=== PATIENT | female | born 1980 | race African-American/Black ===

== ENCOUNTER 2019-09-28 08:10 | Inpatient (IN) | payer OTHER ==
[2019-09-28 09:36] VITALS: BMI 36.1
[2019-09-28] MEDS ORDERED: OXYTOCIN 20 UNITS in 0.9% NS 40 UNIT/2,000 ML INFUS.BAG IV ONE (10:10)
[2019-09-28] MEDS ORDERED: ELECTROLYTE-148 SOLN 1,000 ML IV SCH (10:15)
[2019-09-28] MEDS ORDERED: DEXTROSE 5%-LACTATED RINGERS 1,000 ML IV SCH (10:15)
[2019-09-28] MEDS ORDERED: CITRIC ACID/SODIUM CITRATE 30 ML UNIT-DOSE CUP PO ONE (10:17)
--- NOTE | 2019-09-28 10:22 | HP ---
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: Alzheimer's, CVA, Dementia, Migraine, Multiple Sclerosis, Peripheral Neuropathy, Parkinson's, Seizure, Syncope, TIA, Vertigo, Other Cardiovascular: No: AFIB, Aneurysm, Aortic Insufficiency, Aortic Stenosis, CAD, CHF, Deep Vein Thrombosis, HTN, Hyperlipdemia, PR, Mitral Insufficiency, Mitral Stenosis, Murmur, Pulmonary Hypertension, Other Pulmonary: No: Asthma, Bronchitis, Cancer, COPD, O2 Dependent, Pneumonia, Previously Intubated, Pulmonary Embolus, Pulmonary Fibrosis, Sleep Apnea, Other Gastrointestinal: No: Ascites, Cancer, Constipation, Crohn's Disease, Diverticulitis, Diverticulosis, Esophageal Varices, Gastritis, GERD, GI Bleed, Hemorrhoids, Hiatal Hernia, Inflamatory Bowel Disease, Irritable Bowel Disease, Pancreatitis, Peptic Ulcer Disease, Ulcerative Colitis, Other Hepatobiliary: No: Cirrhosis, Cholelithiasis, Cholecystitis, Choledocholithiasis , Hepatitis A, Hepatitis B, Hepatitis C, Other Renal/: No: Renal Failure, Renal Inusuff, BPH, Cancer, Hematuria, Hemodialysis , Neurogenic Bladder, Renal Calculi, UTI, Other Reproductive: No: Ectopic , Endometriosis, Fibroids, PID, Polycystic Ovary Syndrome, Postmenopausal, Other ...: 3 ...Para: 2 ...Term: 2 ...: 0 ...Spon : 0 ...Induced : 0 ...Multiple Gestation: 0 ...LMP: 12/31/18 ... Weeks Gestation by Dates: 39 ...EDC by Dates: 10/06/19 ...EDC by Sono: 10/05/18 Heme/Onc: No: Anemia, B12 Deficiency, Bleeding Disorder, Cancer, Current Chemotherapy, Current Radiation Therapy, Hemochromatosis, Hypercoaguable State, Myeloproliferative Synd, Sickle Cell Disease, Sickle Cell Trait, Thrombocytopenia, Other Infectious Disease: No: AIDS, C-Diff, Herpes Zoster, HIV, MRSA, STD's, Tuberculosis, VREF, Other Psych: No: Addictions, Anxiety, Bipolar, Depression, Panic, Psychosis, Schizophrenia, Other Musculoskeletal: No: Bursitis, Chronic low back pain, Hemiparesis, Hemiplegia, Osteoarthritis, Paraplegia, Other Rheumatology: No: Fibromyalgia, Gout, Lupus, Rheumatoid Arthritis, Sarcoidosis, Vasculitis, Other ENT: No: Allergic Rhinitis, Sinusitis, Other Endocrine: No: Chet's Disease, Geneva's Disease, Diabetes Insipidus, Diabetes Mellitus, Hyperparathyroidism, Hyperthyroidism, Hypothyroidism, Osteopenia, SIADH, Other Dermatology: No: Basal Cell, Cellulitis, Eczema, Melanoma, Psoriasis, Squamous Cell, Other - Past Surgical History Past Surgical History: No: None, AAA Repair, AICD, Amputation, Appendectomy, Arthrosocopy, AV Fistula/Graft, Bariatric Surgery, Breast Biopsy, Bypass, CABG, Carotid Endarterectomy, Cataract Removal, Cholecystectomy, Colectomy, Colonoscopy, Colostomy, Craniotomy, , Cystectomy, Hernia Repair, Hysterectomy, Ileal Conduit, Ileosotomy, Joint Replacement, Kidney Transplant, Laminectomy, Liver Transplant, Mastectomy, Nephrectomy, Oopherectomy, Orchiectomy, Permanent Pacemaker, Prostatectomy, Splenectomy, Stent, Thoracotomy , TURP, Tonsillectomy, Tubal Ligation, Upper Endoscopy, Valve Replacement, Vasectomy, Vein Stripping/Ligation Hx Myomectomy: No Hx Transabdominal Cerclage: No - Advance Directives Advance Directives: Yes: Living Will - Smoking History Smoking history: Never smoked Have you smoked in the past 12 months: No - Alcohol/Substance Use Hx Alcohol Use: No History of Substance Use: reports: None - Social History Usual Living Arrangement: Yes: With Spouse Do you think of yourself as: Straight/Heterosexual ADL: Independent History of Recent Travel: No Home Medications - Allergies Allergies/Adverse Reactions: Allergies Allergy/AdvReac Type Severity Reaction Status Date / Time No Known Allergies Allergy Verified 09/28/19 09:16 - Home Medications Home Medications: Ambulatory Orders Prenat 115/Iron Fum/Folic/Dss [ 19 Tablet] 1 each PO DAILY 09/28/19 Family Medical History Family History: Denies Review of Systems - Review of Systems Constitutional: reports: No Symptoms Eyes: reports: No Symptoms HENT: reports: No Symptoms Neck: reports: No Symptoms Cardiovascular: reports: No Symptoms Respiratory: reports: No Symptoms Gastrointestinal: reports: No Symptoms Genitourinary: reports: No Symptoms Breasts: reports: No Symptoms Reported Musculoskeletal: reports: No Symptoms Integumentary: reports: No Symptoms Neurological: reports: No Symptoms Endocrine: reports: No Symptoms Hematology/Lymphatic: reports: No Symptoms Psychiatric: reports: No Symptoms 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 - Maternity Vital Signs: Vital Signs Temperature 98.4 F 09/28/19 09:24 Pulse Rate 94 H 09/28/19 09:24 Respiratory Rate 20 09/28/19 09:24 Blood Pressure 117/73 09/28/19 09:24 O2 Sat by Pulse Oximetry (%) Constitutional: Yes: Well Nourished, No Distress, Calm Eyes: Yes: WNL, Conjunctiva Clear, EOM Intact HENT: Yes: WNL, Atraumatic, Normocephalic Neck: Yes: WNL, Supple, Trachea Midline Cardiovascular: Yes: WNL, Regular Rate and Rhythm Lungs: Clear to auscultation Breast(s): Yes: WNL - Abdominal Exam/OB Fundal Height: 40 Number of Fetuses: Single Presentation: Vertex Contractions: Yes Regularity: Irregular Intensity: Mild Monitor Mode: External Heart Rate Location: [facility] Category: I Accelerations: Uniform Decelerations: None - Vaginal Exam/OB Vaginal Bleediing: No Speculum Exam: No Presentation: Vertex/Position Station: -2 - 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 Musculoskeletal: Yes: WNL Extremities: Yes: WNL Edema: Yes Edema: LUE: 1+, RUE: 1+, LLE: 1+ Integumentary: Yes: WNL Deep Tendon Reflex Grade: Normal +2 ...Motor Strength: WNL Psychiatric: Yes: WNL, Alert, Oriented Hemorrhage Risk Assessment - Risk Factors Medium Risk Factors: Yes: Prior , uterine surgery,or multiple laparotomies Risk Score: 1 Risk Level: Medium Risk Assessment/Plan for repeat c s , btl
[2019-09-28] MEDS ORDERED: DEXAMETHASONE SOD PHOSPHATE 4 MG/1 ML VIAL ONE (10:31)
[2019-09-28] MEDS ORDERED: morphine SULFATE/PF 0.5 MG/ML (2cc Syringe - QUVA) ONE (10:31)
[2019-09-28] MEDS ORDERED: ceFAZolin SODIUM 1 GM VIAL ONE (10:31)
[2019-09-28] MEDS ORDERED: OXYTOCIN 10 UNITS/ML VIAL ONE (11:39)
[2019-09-28] MEDS ORDERED: LIDOCAINE HCL/PF 2% SDV 5ML VIAL ONE (11:40)
[2019-09-28] MEDS ORDERED: KETOROLAC TROMETHAMINE 30 MG/1 ML VIAL ONE (11:58)
[2019-09-28] MEDS ORDERED: OXYTOCIN 20 UNITS in 0.9% NS 20 UNIT/1,000 ML INFUS.BAG IV ONE (12:44)
[2019-09-28] MEDS ORDERED: ONDANSETRON 4 MG/2 ML VIAL IVPUSH PRN (12:47)
[2019-09-28] MEDS ORDERED: ACETAMINOPHEN 1000 MG/100 ML VIAL (NON FORMULARY) IVPB PRN (12:48)
[2019-09-28] MEDS ORDERED: IBUPROFEN 800 MG/8 ML IJ IVPB PRN (12:49)
[2019-09-28] MEDS ORDERED: METHYLERGONOVINE MALEATE 0.2 MG/1 ML AMP IM PRN (12:50)
[2019-09-28] MEDS ORDERED: oxyCODONE HCL 5 MG TABLET PO PRN (12:50)
[2019-09-28] MEDS ORDERED: OXYTOCIN 20 UNITS in 0.9% NS 20 UNIT/1,000 ML INFUS.BAG IV SCH (13:00)
[2019-09-28] MEDS: IBUPROFEN 800 MG/8 ML IJ IVPB PRN (18:42)
--- NOTE | 2019-09-28 19:19 | OP ---
Operative Note - Note: Operative Date: 09/28/19 Pre-Operative Diagnosis: repeat lt c s , btl, Operation: repeat lt c s, btl Findings: no adhesions Post-Operative Diagnosis: Same as Pre-op Surgeon: Yony Moulton Manager Credit Risk: Tutu Bowen Anesthesiologist/BUYER ASSISTANT: Paula Zamarripa Anesthesia: Spinal Specimens Removed: tubes x 2 Estimated Blood Loss (mls): 700 (no complications ) Operative Report Dictated: Yes
[2019-09-28] MEDS ORDERED: SENNOSIDES/DOCUSATE COMBO (SENNA PLUS) TABLET (UD) PO PRN (22:00)
[2019-09-29] MEDS: IBUPROFEN 800 MG/8 ML IJ IVPB PRN (07:20)
--- NOTE | 2019-09-29 08:31 | PN ---
Progress Note (short form) - Note Progress Note: Anesthesia POD#1 S/P Repeat under Spinal and Duramorph. VSS,Bearable pain,no N/V, Legs fully recovered, mild itch. No complications to anesthesia seen. Paula Zamarripa MD.
[2019-09-29 09:32] LABS: BASO % 0.3 % (0-2.0); EOS % 0.8 % (0-4.5); HEMOGLOBIN 9.3 GM/dL (10.7-15.3); LYMPH % 14.8 % (8-40); MCH 24.5 pg (25.7-33.7); MCHC 32.1 g/dl (32.0-36.0); MEAN CELL VOLUME 76.3 fl (80-96); MONO % 7.4 % (3.8-10.2); NEUT % 76.7 % (42.8-82.8); PLATELET COUNT 161 K/MM3 (134-434); RDW 15.3 % (11.6-15.6); WHITE BLOOD COUNT 9.9 K/mm3 (4.0-10.0)
[2019-09-29] MEDS: ENOXAPARIN NA (PORCINE) 40 MG/0.4 ML DISP.SYRIN SQ SCH (10:34)
[2019-09-29] MEDS ORDERED: BISACODYL 10 MG SUPP.RECT RC PRN (12:50)
--- NOTE | 2019-09-29 14:55 | PN ---
Post Progress Note Post Day: 1 Type of Delivery: Repeat C/S Vital Signs: Vital Signs Temperature 98.0 F 09/29/19 14:29 Pulse Rate 80 09/29/19 14:29 Respiratory Rate 20 09/29/19 14:29 Blood Pressure 105/64 09/29/19 14:29 O2 Sat by Pulse Oximetry (%) 100 09/28/19 13:40 Breast Exam: Yes: Soft Uterus: Yes: Fundus Firm Incision: Yes: Sutures intact Abdomen/GI: Yes: Abdomen soft, Passing flatus, Tolerating PO Lochia: Yes: Serosa Lochia, amount: Small Extremities: Yes: Calves non-tender Perineum: Yes: Intact Activity: Ambulating - Labs Labs: CBC WBC 9.9 K/mm3 (4.0-10.0) 09/29/19 08:28 RBC 3.80 M/mm3 (3.60-5.2) 09/29/19 08:28 Hgb 9.3 GM/dL (10.7-15.3) L 09/29/19 08:28 Hct 29.0 % (32.4-45.2) L D 09/29/19 08:28 MCV 76.3 fl (80-96) L 09/29/19 08:28 MCH 24.5 pg (25.7-33.7) L 09/29/19 08:28 MCHC 32.1 g/dl (32.0-36.0) 09/29/19 08:28 RDW 15.3 % (11.6-15.6) 09/29/19 08:28 Plt Count 161 K/MM3 (134-434) 09/29/19 08:28 MPV 9.0 fl (7.5-11.1) 09/29/19 08:28 Absolute Neuts (auto) 7.6 K/mm3 (1.5-8.0) 09/29/19 08:28 Neutrophils % 76.7 % (42.8-82.8) 09/29/19 08:28 Lymphocytes % 14.8 % (8-40) 09/29/19 08:28 Monocytes % 7.4 % (3.8-10.2) 09/29/19 08:28 Eosinophils % 0.8 % (0-4.5) 09/29/19 08:28 Basophils % 0.3 % (0-2.0) 09/29/19 08:28 Nucleated RBC % 0 % (0-0) 09/29/19 08:28 Assessment/Plan oob as much as possible
[2019-09-29] MEDS: IBUPROFEN 600 MG TABLET (FP) PO PRN ×2 (15:04→23:20)
[2019-09-29] MEDS: ACETAMINOPHEN 325 MG TABLET (FP) PO PRN ×2 (15:05→23:21)
--- NOTE | 2019-09-29 18:58 | OP ---
DATE OF OPERATION: 09/28/2019 PREOPERATIVE DIAGNOSIS: Repeat low transverse section x3. Bilateral tubal ligation. POSTOPERATIVE DIAGNOSIS: Repeat low transverse section x3. Bilateral tubal ligation. PROCEDURE: Repeat low transverse section. Bilateral tubal ligation. SURGEON: Yony Perez MD. PUBLIC HEALTH SPECIALIST: YAIR Funes. ANESTHESIOLOGIST: Paula Zamarripa MD ANESTHESIA: Spinal. INDICATION: This is a 39-year-old female patient, 39 weeks , previous history of 2 low transverse sections here today for repeat low transverse section x3. Patient requests bilateral tubal ligation. All the risks, benefits, alternatives explained to the patient including the risk of a future , ectopic, nonreversible, and patient understood including this is a 99% effective rate only. Patient declined all other methods of family planning, insists on a bilateral tubal ligation. DESCRIPTION OF PROCEDURE: Patient was placed on operating table in supine position after spinal anesthesia was obtained. The patient's abdomen and pelvis were prepped and draped in the usual sterile manner. Following same Pfannenstiel incision, incision was made through skin, subcutaneous tissue, until the fascia was nicked in the midline. The fascia was extended bilaterally. Intraperitoneal cavity was entered, bladder flap was created. Low transverse section of uterus was entered, baby delivered from LOT position. Baby was handed over to the cylinder machine operator after umbilical cord was doubly clamped and cut. Cord blood gas was obtained. Placenta was removed. Uterus was then closed in single layer, good hemostasis, no complications, and both ovaries, fallopian tubes, uterus were within normal limits. And now we proceed to the tubal ligation part. Both the isthmic and the fallopian tube was grasped with [place], doubly transected and suture ligated. Good hemostasis. Both ends were coagulated with Bovie, no complications. Patient tolerated procedure well. The peritoneum was closed. Fascia was closed. Skin was closed. Transferred to recovery room in stable condition. Blood less than 100 mL. YONY PEREZ MD /[id number]
[2019-09-30] MEDS: IBUPROFEN 600 MG TABLET (FP) PO PRN ×3 (08:46→19:35)
[2019-09-30] MEDS: ACETAMINOPHEN 325 MG TABLET (FP) PO PRN (08:47)
[2019-09-30] MEDS ORDERED: DIPHTH,PERTUSS(ACELL),TET 0.5 ML DISP.SYRIN IM ONE (10:00)
[2019-09-30] MEDS: oxyCODONE HCL 5 MG TABLET PO PRN ×3 (10:02→19:36)
[2019-09-30] MEDS: SIMETHICONE 80 MG TAB.CHEW (FP) PO PRN ×2 (10:04→14:32)
[2019-09-30] MEDS: ENOXAPARIN NA (PORCINE) 40 MG/0.4 ML DISP.SYRIN SQ SCH (10:07)
--- NOTE | 2019-09-30 17:40 | PN ---
Post Progress Note Post Day: 2 Type of Delivery: Repeat C/S Vital Signs: Vital Signs Temperature 99.0 F 09/30/19 09:00 Pulse Rate 82 09/30/19 09:00 Respiratory Rate 20 09/30/19 09:00 Blood Pressure 114/71 09/30/19 09:00 O2 Sat by Pulse Oximetry (%) 100 09/28/19 13:40 Breast Exam: Yes: Soft Uterus: Yes: Fundus Firm, Fundus below umbilicus Incision: Yes: Dressing dry and intact, Sutures intact Abdomen/GI: Yes: Abdomen soft, Passing flatus, Tolerating PO Lochia: Yes: Serosa Lochia, amount: Small Extremities: Yes: Calves non-tender Perineum: Yes: Intact Activity: Ambulating - Labs Labs: CBC WBC 9.9 K/mm3 (4.0-10.0) 09/29/19 08:28 RBC 3.80 M/mm3 (3.60-5.2) 09/29/19 08:28 Hgb 9.3 GM/dL (10.7-15.3) L 09/29/19 08:28 Hct 29.0 % (32.4-45.2) L D 09/29/19 08:28 MCV 76.3 fl (80-96) L 09/29/19 08:28 MCH 24.5 pg (25.7-33.7) L 09/29/19 08:28 MCHC 32.1 g/dl (32.0-36.0) 09/29/19 08:28 RDW 15.3 % (11.6-15.6) 09/29/19 08:28 Plt Count 161 K/MM3 (134-434) 09/29/19 08:28 MPV 9.0 fl (7.5-11.1) 09/29/19 08:28 Absolute Neuts (auto) 7.6 K/mm3 (1.5-8.0) 09/29/19 08:28 Neutrophils % 76.7 % (42.8-82.8) 09/29/19 08:28 Lymphocytes % 14.8 % (8-40) 09/29/19 08:28 Monocytes % 7.4 % (3.8-10.2) 09/29/19 08:28 Eosinophils % 0.8 % (0-4.5) 09/29/19 08:28 Basophils % 0.3 % (0-2.0) 09/29/19 08:28 Nucleated RBC % 0 % (0-0) 09/29/19 08:28 Assessment/Plan dc pt home tomorrow
[2019-10-01] MEDS: IBUPROFEN 600 MG TABLET (FP) PO PRN ×2 (05:08→13:25)
[2019-10-01] MEDS: oxyCODONE HCL 5 MG TABLET PO PRN (05:09)
[2019-10-01 07:52] LABS: BASO % 0.4 % (0-2.0); EOS % 2.7 % (0-4.5); HEMOGLOBIN 10.3 GM/dL (10.7-15.3); LYMPH % 14.3 % (8-40); MCH 24.5 pg (25.7-33.7); MCHC 32.3 g/dl (32.0-36.0); MEAN CELL VOLUME 75.8 fl (80-96); MEAN PLT VOLUME 8.4 fl (7.5-11.1); MONO % 8.2 % (3.8-10.2); NEUT % 74.4 % (42.8-82.8); PLATELET COUNT 227 K/MM3 (134-434); RBC 4.22 M/mm3 (3.60-5.2); RDW 15.4 % (11.6-15.6)
--- NOTE | 2019-10-01 09:54 | PN ---
Post Progress Note Post Day: 3 Type of Delivery: Repeat C/S Vital Signs: Vital Signs Temperature 98.5 F 09/30/19 21:28 Pulse Rate 100 H 09/30/19 21:28 Respiratory Rate 20 09/30/19 21:28 Blood Pressure 121/71 09/30/19 21:28 O2 Sat by Pulse Oximetry (%) 100 09/28/19 13:40 Breast Exam: Yes: Soft Uterus: Yes: Fundus Firm, Fundus below umbilicus Incision: Yes: Dressing dry and intact, Sutures intact Abdomen/GI: Yes: Abdomen soft, Passing flatus, Tolerating PO Lochia: Yes: Serosa Lochia, amount: Small Extremities: Yes: Calves non-tender Perineum: Yes: Intact Activity: Ambulating (dc pt home today. ) - Labs Labs: CBC WBC 7.0 K/mm3 (4.0-10.0) 10/01/19 07:28 RBC 4.22 M/mm3 (3.60-5.2) 10/01/19 07:28 Hgb 10.3 GM/dL (10.7-15.3) L 10/01/19 07:28 Hct 32.0 % (32.4-45.2) L 10/01/19 07:28 MCV 75.8 fl (80-96) L 10/01/19 07:28 MCH 24.5 pg (25.7-33.7) L 10/01/19 07:28 MCHC 32.3 g/dl (32.0-36.0) 10/01/19 07:28 RDW 15.4 % (11.6-15.6) 10/01/19 07:28 Plt Count 227 K/MM3 (134-434) D 10/01/19 07:28 MPV 8.4 fl (7.5-11.1) 10/01/19 07:28 Absolute Neuts (auto) 5.2 K/mm3 (1.5-8.0) 10/01/19 07:28 Neutrophils % 74.4 % (42.8-82.8) 10/01/19 07:28 Lymphocytes % 14.3 % (8-40) 10/01/19 07:28 Monocytes % 8.2 % (3.8-10.2) 10/01/19 07:28 Eosinophils % 2.7 % (0-4.5) D 10/01/19 07:28 Basophils % 0.4 % (0-2.0) 10/01/19 07:28 Nucleated RBC % 0 % (0-0) 10/01/19 07:28
--- NOTE | 2019-10-01 10:00 | DS ---
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-HEATER OPERATOR Vital Signs: Vital Signs Temperature 98.5 F 09/30/19 21:28 Pulse Rate 100 H 09/30/19 21:28 Respiratory Rate 20 09/30/19 21:28 Blood Pressure 121/71 09/30/19 21:28 O2 Sat by Pulse Oximetry (%) 100 09/28/19 13:40 Constitutional: Yes: Well Nourished, No Distress, Calm Eyes: Yes: WNL, Conjunctiva Clear, EOM Intact HENT: Yes: WNL, Atraumatic, Normocephalic Neck: Yes: WNL, Supple, Trachea Midline Cardiovascular: Yes: WNL, Regular Rate and Rhythm Respiratory: Yes: WNL, Regular, CTA Bilaterally Gastrointestinal: Yes: WNL, Normal Bowel Sounds, Soft ...Rectal Exam: Yes: WNL Renal/: Yes: WNL Pelvis: Yes: WNL External Genitalia: Yes: Normal Internal Exam Deferred: No Vaginal Exam: Yes: Normal Cervix: Yes: Normal Uterus: Yes: Normal Adnexa: Normal: Bilateral ....Post : Yes: Uterus firm, Uterus non-tender Breast(s): Yes: WNL Musculoskeletal: Yes: WNL Extremities: Yes: WNL Edema: Yes Edema: LUE: 1+, RUE: 1+, LLE: 1+, RLE: 1+ Integumentary: Yes: WNL Wound/Incision: Yes: Clean/Dry, Well Approximated Neurological: Yes: WNL, Alert, Oriented ...Motor Strength: WNL Psychiatric: Yes: WNL, Alert, Oriented Labs: CBC, BMP 10/01/19 07:28 Delivery - Delivery Section: Repeat Type of Anesthesia: Spinal EBL (cc): 600 Delivery, Single - Stages of Labor Date of Delivery: 09/28/19 Time of Delivery: 11:38 Time Placenta Delivered: 11:39 Placenta: Yes: Spontaneous - Condition of Infant 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 Present: Yes Name: Johan Chairez Infant Gender: Male Weight: 3.515 kg Position: Left, OA Total Hours ROM (Hrs/Mins): 2min - 1 Minute Total Score: 9 5 Minutes Total Score: 9 - [place] Feeding Plan Initial Plan: Elected not to breastfeed exclusively throughout hospitalization Benefits of Exclusively reinforced: Yes Discharge Summary Problems reviewed: Yes Reason For Visit: C SECTION Procedures: Principal: repeat lt c s Other Procedures: btl Hospital Course: uneventful Health Concerns: none Plan of Treatment: oob as much as possible Goals: return to work in 8 weeks Condition: Good - Instructions Diet, Activity, Other Instructions: regular , Physical activity Resume your normal everyday activity as tolerated no heavy lifting or exercise until seen by your surgeon. You may walk unlimited jojo of and climb stairs. You may resume driving the car when you feel safe and comfortable behind the wheel. No sexual activity as instructed. Wound care If you have a bandage, leave it on, and keep dry for 48-72 hours. After that time discard the outer bandage. If they are tapes on the skin under the out of bandage leave them in place. They will peel off in the next 7 to 10 days. Do Not Peel them off. You may shower the day after surgery. If there are tapes present on the skin, you may shower over them. Diet There are no dietary restrictions. Eat healthy, high-fiber foods. Drink 6 to 8 glasses of liquid each day. This will assist in keeping your bowels are regular. Pain management You may take Tylenol or acetaminophen or Ibuprofen (for example, Motrin, Advil etc.) from my pain prescription medication is ordered should be taken as prescribed for moderate to severe pain. Call MD for any of the following: Severe pain not relieved by medication Fever of 101 or higher Excessive bleeding or drainage on dressing Inability to urinate Disposition: HOME - Home Medications Comprehensive Discharge Medication List: Ambulatory Orders Prenat 115/Iron Fum/Folic/Dss [ 19 Tablet] 1 each PO DAILY 09/28/19 Prescription Drug Monitoring Program (I-STOP) results: I-STOP reviewed and no issues identified
[2019-10-01] MEDS: ENOXAPARIN NA (PORCINE) 40 MG/0.4 ML DISP.SYRIN SQ SCH (10:23)
[2019-10-01] MEDS: ACETAMINOPHEN 325 MG TABLET (FP) PO PRN (13:25)
[2019-10-01] MEDS: SIMETHICONE 80 MG TAB.CHEW (FP) PO PRN (13:26)
[2019-10-01 15:20] VITALS: BP 121/70; PULSE 91; TEMP 98.8
--- NOTE | 2019-10-06 14:46 | PATH ---
Surgical Pathology Report Patient Name: SHARMILA HURTADO [facility]. Rec. 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 PLACENTA: THIRD TRIMESTER PLACENTA. TRIVASCULAR CORD. MEMBRANES WITH NO DIAGNOSTIC ABNORMALITIES. B. RIGHT PORTION OF FALLOPIAN TUBE, RESECTION: COMPLETE CROSS SECTION OF THE FALLOPIAN TUBE LUMEN IDENTIFIED. C. LEFT PORTION OF FALLOPIAN TUBE, RESECTION: COMPLETE CROSS SECTION OF THE FALLOPIAN TUBE LUMEN IDENTIFIED. Electronically Signed Cj Domínguez M.D. Gross Description A. The specimen is received fresh labeled placenta and is a 482 gram, 20.0 x 15.5 x 3.4 cm. placenta with attached membranes and umbilical cord. The attached membranes are berrios, translucent with focal opacities and insert marginally. The umbilical cord measures 44 cm. in length and averages 1.3 cm. in diameter. The cord inserts eccentrically, 4.5 cm. to the nearest margin. No true knots or strictures are identified. Cut surface of the umbilical cord reveals 3 vessels. The surface is rush-blue with minimal fibrin deposition and appropriate caliber vessels. The maternal surface is red-brown with focal defects. Sectioning reveals red-brown, spongy parenchyma. No lesions are identified. Dopster sections are submitted in three cassettes as follows: 1- membrane rolls and umbilical cord; 2-3- full thickness sections of placenta. B. Received in formalin labeled "right portion of fallopian tube," is a 1.7 cm in length portion of fallopian tube. No fimbria are present. The outer surface is berrios-funes and smooth. Sectioning reveals an unremarkable lumen. Dopster sections are submitted in one cassette. C. Received in formalin labeled "left portion of fallopian tube," is a 1.7 cm in length portion of fallopian tube. No fimbria are present. The outer surface is berrios rush and smooth. Sectioning reveals an unremarkable lumen. Dopster sections are submitted in one cassette. 10/05/2019 [facility]10/05/2019
== END 2019-10-01 14:40 | disposition home or self-care (01) | DRG 785 ==
LOC: JLDR 08:10 → J3W 14:44
PROVIDERS: ADMIT Obstetrics & Gynecology; ATTEND Obstetrics & Gynecology
PROC: 10D00Z1 Extraction of Products of Conception, Low, Open Approach (ICD-10-PCS; principal; 2019-09-28)
PROC: 0UB70ZZ Excision of Bilateral Fallopian Tubes, Open Approach (ICD-10-PCS; 2019-09-28)
DX: O34.219 Maternal care for unspecified type scar from previous cesarean delivery (principal); Z3A.39 39 weeks gestation of pregnancy; Z37.0 Single live birth; Z30.2 Encounter for sterilization
CPT/HCPCS: 36415; 85025; 88302-TC; 88307-TC; 90715